=== PATIENT | female | born 1995 | race Caucasian/White ===

== ENCOUNTER → 2018-06-24 | Outpatient (REF) | payer BC ==
[2018-06-24 14:02] LABS: AMORPHOUS SEDIMENT SMALL (NEGATIVE); APPEARANCE, URINE CLOUDY (CLEAR); BACTERIA, URINE AUTO 3+ (NEGATIVE); BILIRUBIN, URINE AUTO NEGATIVE (NEGATIVE); BLOOD, URINE BLOOD NEGATIVE (NEGATIVE); COLOR, URINE YELLOW (YELLOW); GLUCOSE, URINE (UA) AUTO NEGATIVE (NEGATIVE); KETONE, URINE AUTO NEGATIVE (NEGATIVE); LEUKOCYTE ESTERASE, URINE AUTO 1+ (NEGATIVE); MUCUS, URINE SMALL (NEGATIVE); NITRITE, URINE AUTO NEGATIVE (NEGATIVE); PROTEIN, URINE AUTO NEGATIVE (NEGATIVE); RBC, URINE AUTO 1 /HPF (0-3); SPECIFIC GRAVITY URINE AUTO 1.021 (1.002-1.035); SQUAMOUS EPITHELIAL CELL UR AU 8 /HPF (0-6); UROBILINOGEN, URINE AUTO 0.2 mg/dL (0.0-2.0); WBC, URINE AUTO 4 /HPF (0-3)
== END ==
LOC: M LAB REF 13:05
DX: N39.0 Urinary tract infection, site not specified (principal)

== ENCOUNTER → 2020-06-30 | Outpatient (REF) | payer BC ==
[2020-07-27 11:19] LABS: CHLAMYDIA DNA AMPLIFICATION NEGATIVE (NEGATIVE); GC DNA AMPLIFICATION NEGATIVE (NEGATIVE)
[2020-07-29 02:28] LABS: HEMATOCRIT 39.7 % (36.0-47.0); HEMOGLOBIN 12.6 g/dl (12.0-15.5); MEAN CORPUSCULAR HEMOGLOBIN 27.7 pg (27.0-33.0); MEAN CORPUSCULAR HGB CONC 31.7 g/dl (32.0-36.5); MEAN CORPUSCULAR VOLUME 87.3 fl (80.0-96.0); PLATELET COUNT, AUTOMATED 235 10^3/uL (150-450); RED BLOOD COUNT 4.55 10^6/uL (4.00-5.40); WHITE BLOOD COUNT 8.3 10^3/uL (4.0-10.0)
[2020-08-17 12:58] LABS: GLUCOSE CHALLENGE TEST 1 HOUR 123 MG/DL (LESS THAN 140); HEPATITIS C VIRUS ABY INDEX 0.2 INDEX (<0.8); HIV 1&2 SCREEN CENTAUR NEGATIVE (NEGATIVE)
== END ==
LOC: M SFHCWAGY 15:32
PROVIDERS: ATTEND Advanced Practice Midwife
DX: O99.211 Obesity complicating pregnancy, first trimester (principal); Z3A.00 Weeks of gestation of pregnancy not specified

== ENCOUNTER → 2020-08-11 | Outpatient (CLI) | payer BC ==
--- NOTE | 2020-08-29 15:24 | REP ---
COMPLETE OBSTETRIC ULTRASOUND CLINICAL: Anatomical assessment. TECHNIQUE: Transabdominal obstetrical ultrasound with color Doppler evaluation. FINDINGS: Ultrasound examination demonstrates a single live intrauterine in variable presentation. Placenta noted anteriorly and grade 1 without evidence for placenta previa or abruption. Amniotic fluid volume is normal. Cervix measures 3.4 cm in length and appears closed. No evidence for nuchal cord. Gestational age by current measurements 18 weeks 1 day with estimated date of delivery 01/11/2021. heart rate 152 beats per minute. MEASUREMENTS: BPD 4.1 cm 18 weeks 4 days HC 15.1 cm 18 weeks 1 day AC 12.1 cm 17 weeks 5 days FL 2.7 cm 18 weeks 1 day HL 2.5 cm 17 weeks 6 days HC/AC ratio 1.25 Estimated weight 218 g (52nd percentile). Anatomical assessment demonstrates normal cranium, choroid plexus, cerebellum/posterior fossa, facial profile, four chamber heart, diaphragm, stomach, kidneys/bladder, spine, three-vessel cord/cord insertion, and extremities. Limited evaluation of the nose and lips and cardiac ventricular outflow tracts noted. IMPRESSION: Single live intrauterine in variable presentation demonstrating appropriate estimated weight. Limited evaluation of the nose/lips and cardiac ventricular outflow tracts may warrant reevaluation and follow-up. Remainder of the anatomical assessment is complete and normal. MTDD
== END ==
LOC: M WHC 09:03
PROVIDERS: ATTEND Advanced Practice Midwife
DX: Z34.82 Encounter for supervision of other normal pregnancy, second trimester (principal); Z3A.18 18 weeks gestation of pregnancy

== ENCOUNTER → 2020-09-15 | Outpatient (CLI) | payer BC ==
--- NOTE | 2020-09-15 08:12 | REP ---
INDICATION: F/U ANATOMY COMPARISON: 08/11/2020 TECHNIQUE: Transabdominal obstetrical ultrasound with color Doppler evaluation. FINDINGS: Examination demonstrates a single live intrauterine in transverse with head to maternal right presentation. motion is identified by technologist. Placenta is noted anterior and grade 1 without evidence for placenta previa or abruption. Amniotic fluid volume is normal. Cervix measures 3.2 cm in length and appears closed. No evidence for nuchal cord. Gestational age by LMP 22 weeks 6 days with AMY 01/13/2021. Gestational age by current measurements 22 weeks 6 days with AMY 01/13/2021. FHR equals 149 beats per minute. Estimated weight 532 grams (36thpercentile). Anatomical assessment demonstrates normal structures including cranium, facial features, lungs, cardiac ventricular outflow tracts, diaphragm, stomach, cord insertion/three-vessel cord, kidneys/bladder and spine. IMPRESSION: Single live intrauterine in transverse lie demonstrating appropriate interval growth and estimated weight. In conjunction with prior examination and Dom go assessment is complete and normal. <Electronically signed by Cheo Sandoval > 09/15/20 0833
== END ==
LOC: M WHC 06:41
PROVIDERS: ATTEND Advanced Practice Midwife
DX: O99.212 Obesity complicating pregnancy, second trimester (principal); O32.2XX0 Maternal care for transverse and oblique lie, not applicable or unspecified; Z3A.22 22 weeks gestation of pregnancy

== ENCOUNTER → 2020-10-21 | Outpatient (CLI) | payer BC | LOC: M LABSMTC 11:02 | PROVIDERS: ATTEND Pediatrics | DX: Z20.828 Contact with and (suspected) exposure to other viral communicable diseases (principal) ==

== ENCOUNTER → 2020-11-13 | Outpatient (REF) | payer BC ==
[2020-11-13 14:59] LABS: HEMATOCRIT 32.3 % (36.0-47.0); HEMOGLOBIN 10.3 g/dl (12.0-15.5); MEAN CORPUSCULAR HEMOGLOBIN 29.2 pg (27.0-33.0); MEAN CORPUSCULAR HGB CONC 31.9 g/dl (32.0-36.5); MEAN CORPUSCULAR VOLUME 91.5 fl (80.0-96.0); PLATELET COUNT, AUTOMATED 193 10^3/uL (150-450); RED BLOOD COUNT 3.53 10^6/uL (4.00-5.40); WHITE BLOOD COUNT 9.9 10^3/uL (4.0-10.0)
== END ==
LOC: M PLALAB 09:04
PROVIDERS: ATTEND Advanced Practice Midwife
DX: Z3A.26 26 weeks gestation of pregnancy (principal)

== ENCOUNTER → 2020-11-20 | Outpatient (CLI) | payer BC | LOC: M LAB 07:04 | PROVIDERS: ATTEND Advanced Practice Midwife | DX: Z34.93 Encounter for supervision of normal pregnancy, unspecified, third trimester (principal); Z3A.00 Weeks of gestation of pregnancy not specified ==

== ENCOUNTER → 2020-12-08 | Outpatient (REF) | payer BC ==
[2020-12-08 15:43] LABS: HEMATOCRIT 33.5 % (36.0-47.0); HEMOGLOBIN 10.6 g/dl (12.0-15.5); MEAN CORPUSCULAR HGB CONC 31.6 g/dl (32.0-36.5); MEAN CORPUSCULAR VOLUME 91.5 fl (80.0-96.0); PLATELET COUNT, AUTOMATED 186 10^3/uL (150-450); RED BLOOD COUNT 3.66 10^6/uL (4.00-5.40); WHITE BLOOD COUNT 9.4 10^3/uL (4.0-10.0)
[2020-12-08 16:07] LABS: HEMOGLOBIN A1c 5.5 %
[2020-12-08 16:23] LABS: CREATININE,RANDOM URINE 16.4 MG/DL; TOTAL PROTEIN,RANDOM URINE < 5.0 MG/DL (0.0-12.0)
[2020-12-08 16:24] LABS: ALT/SGPT 8 U/L (12-78); BILIRUBIN,TOTAL 0.3 MG/DL (0.2-1.0); CREATININE FOR GFR 0.58 MG/DL (0.55-1.30); GLOMERULAR FILTRATION RATE > 60.0 (>60); LDH LACTATE DEHYDROGENASE 120 U/L (84-246); URIC ACID 3.1 MG/DL (2.6-6.0)
== END ==
LOC: M PLALAB 11:34
PROVIDERS: ATTEND Advanced Practice Midwife
DX: R11.0 Nausea (principal)

== ENCOUNTER → 2020-12-19 | Outpatient (REF) | payer BC | LOC: M PLALAB 15:49 | PROVIDERS: ATTEND Obstetrics & Gynecology | DX: Z3A.36 36 weeks gestation of pregnancy (principal) ==

== ENCOUNTER → 2020-12-21 | Outpatient (REF) | payer BC ==
[~2020-12-21] MED LIST: FERR325T3 PO; PRENTAB9 PO
== END ==
LOC: M SFHCWAGY 16:56
PROVIDERS: ATTEND Obstetrics & Gynecology
DX: O99.820 Streptococcus B carrier state complicating pregnancy (principal); Z3A.36 36 weeks gestation of pregnancy

== ENCOUNTER 2021-01-13 12:45 | Inpatient (IN) | payer BC ==
[~2021-01-13] VITALS: Ht 167.6 cm; Wt 97.0 kg
[2021-01-13] VITALS (24 sets, daily range): BP systolic 99–144; BP diastolic 55–81
--- OUTSIDE RECORDS SUMMARY | 2021-01-13 12:49 | CCD ---
Author Author [facility] Organization [facility] Address Unknown Phone Unavailable Care Team Providers Care Gas Desulfurizer Name Role Phone Adelia Clayton Unavailable PROBLEMS Type Condition ICD9-CM Code PDF12-EX Code Onset Dates Condition S tatus SNOMED Code Notes Problem Obesity complicating in second trimester O99.212 Active 281119013422 Problem Obesity complicating , third trimester O9 9.213 Active 305337969652 Problem Other obesity due to excess calories E66.09 Act chris 476273711 Problem Supervision of other normal Z34.80 Ac tive 435054472 Problem Body mass index (BMI) 33.0-33.9, adult Z68.33 A ctive 640616051 Problem Obesity complicating in first trimester O99.211 Active 642125703660 ALLERGIES Allergen (clinical drug ingredient) Drug/Non Drug Allergy do cumented on EMR Reaction Allergy Type Onset Date Status penicillin Rash Non Drug Allergy 06/09/2020 Active ENCOUNTERS from 1997 to 2020-12-09 Encounter Location Date Provider Diagnosis [facility] [address] [place] [address] 08 Dec, 2020 Adelia Dailyevon Nausea R11.0 and Headache R51 IMMUNIZATIONS Vaccine Route Administration Date Status TDAP (VFC) 0.5mL (Boostrix) IM Intramuscular Nov 27, 2020 Adm inistered SOCIAL HISTORY Tobacco Use: Social History Observation Description Date Details (start date - stop date) Never Smoker Sex Assigned At : Social History Observation Description Sex Assigned At Unknown Alcohol Screening: Question Answer Notes Did you have a drink containing alcohol in the past year? No Points 0 Interpretation Negative Tobacco Use: Question Answer Notes Are you a: never smoker REASON FOR REFERRAL No Information VITAL SIGNS No information MEDICATIONS Medication SIG (Take, Route, Frequency, Duration) Notes Start Da te End Date Status Iron 325 (65 Fe) MG 1 tablet Orally Once a day Active 28-0.8 MG 1 tablet Orally Once a day Active Zofran 4 MG 1 tablet Orally every 8 hours as needed for nausea Not-Taking PROCEDURES No Information RESULTS Component Value Reference Range CBC - Complete Blood Count Reviewed date:12/08/2020 18:00:39 Interpretation: Performing Lab:[facility] LABORATORY [address] [id number] , ,[place] [address] WHITE BLOOD COUNT 9.4 4.0-10.0 RED BLOOD COUNT 3.66 4.00-5.40 HEMOGLOBIN 10.6 12.0-15.5 HEMATOCRIT 33.5 36.0-47.0 MEAN CORPUSCULAR VOLUME 91.5 80.0-96.0 MEAN CORPUSCULAR HEMOGLOBIN 29.0 27.0-33.0 MEAN CORPUSCULAR HGB CONC 31.6 32.0-36.5 RED CELL DISTRIBUTION WIDTH 14.6 11.5-14.5 PLATELET COUNT, AUTOMATED 186 150-450 HEMOGLOBIN A1c Reviewed date:12/08/2020 17:52:17 Interpretation: Performing Lab:[facility] LABORATORY [address] [address] , ,[facility] HEMOGLOBIN A1c 5.5 ESTIMATED AVERAGE GLUCOSE 111 60-110 Pre Eclampsia Profile Reviewed date:12/08/2020 17:55:16 Interpretation: Performing Lab:[facility] LABORATORY [address] [address] , ,[facility] CREATININE FOR GFR 0.58 0.55-1.30 GLOMERULAR FILTRATION RATE > 60.0 >60 AST/SGOT 6 7-37 ALT/SGPT 8 12-78 LDH LACTATE DEHYDROGENASE 120 84-246 BILIRUBIN,TOTAL 0.3 0.2-1.0 URIC ACID 3.1 2.6-6.0 CREATININE,RANDOM URINE Reviewed date:12/08/2020 17:53:08 Interpretation: Performing Lab:[facility] LABORATORY [address] [id number] , ,[place] [address] CREATININE,RANDOM URINE 16.4 TOTAL PROTEIN,RANDOM URINE Reviewed date:12/08/2020 17:54:59 Interpretation: Performing Lab:[facility] LAB[facility]ORY [id number] , ,[place] [address] TOTAL PROTEIN,RANDOM URINE < 5.0 0.0-12.0 REASON FOR VISIT symptoms MEDICAL (GENERAL) HISTORY Type Description Date Surgical History No know Surgical history Goals Section No Information Health Concerns No Information MEDICAL EQUIPMENT No Information MENTAL STATUS No Information FUNCTIONAL STATUS No Information ASSESSMENTS Encounter Date Diagnosis Assessment Notes Treatment Notes Treatm ent Clinical Notes Dec, Nausea (ICD-10 - R11.0) Dec, Headache (ICD-10 - R51) PLAN OF TREATMENT Next Appt Details Provider Name:Sonia Saenz, 2020-12 03:40:00 PM, [address] [place], [address], Insurance Providers Payer Name Payer Address Payer Phone Insured Name Patient Relati onship to Insured Coverage Start Date Coverage End Date KESHA [place] [facility] [address] [place] [address] Terry Fitch
--- OUTSIDE RECORDS SUMMARY | 2021-01-13 12:49 | CCD ---
Author Author [facility] Organization [facility] Address Unknown Phone Unavailable Care Team Providers Care Pumping Station Supervisor Name Role Phone Kobi Serrano Unavailable PROBLEMS Type Condition ICD9-CM Code BNL24-XP Code Onset Dates Condition S tatus SNOMED Code Notes Problem Obesity complicating in second trimester O99.212 Active 406924846220 Problem Obesity complicating , third trimester O9 9.213 Active 306887830964 Problem Other obesity due to excess calories E66.09 Act crhis 446592326 Problem Supervision of other normal Z34.80 Ac tive 935868296 Problem Body mass index (BMI) 33.0-33.9, adult Z68.33 A ctive 626932249 Problem Obesity complicating in first trimester O99.211 Active 674363276047 ALLERGIES Allergen (clinical drug ingredient) Drug/Non Drug Allergy do cumented on EMR Reaction Allergy Type Onset Date Status penicillin Rash Non Drug Allergy 06/09/2020 Active ENCOUNTERS from 1997 to 2020-12-06 Encounter Location Date Provider Diagnosis [facility] [place] [address] Oct, Kobi Serrano 33 weeks gestation o f Z3A.33 ; Obesity complicating , third trimester O99.213 and Encounter for immunization Z23 IMMUNIZATIONS Vaccine Route Administration Date Status TDAP [...] REASON FOR REFERRAL No Information VITAL SIGNS Weight 205 lbs Oct, Height 66 in Oct, BMI 33.088 kg/m2 Oct, Blood pressure systolic 118 mm Hg Oct, Blood pressure diastolic 78 mm Hg Oct, MEDICATIONS Medication SIG (Take, Route, Frequency, Duration) Notes Start Da te End Date Status Iron 325 (65 Fe) MG 1 tablet Orally Once a day Active 28-0.8 MG 1 tablet Orally Once a day Active Zofran 4 MG 1 tablet Orally every 8 hours as needed for nausea Not-Taking PROCEDURES from 1997 to 2020-12-06 Procedure Date Ordered Result Body Site Immunization: Boostrix 0.5mL IM (TDAP) 2020-11-27 N/A RESULTS No Results REASON FOR VISIT 2WK PN MEDICAL (GENERAL) HISTORY Type Description Date Surgical History No know Surgical history Goals Section No Information Health Concerns No Information MEDICAL EQUIPMENT No Information MENTAL STATUS No Information FUNCTIONAL STATUS No Information ASSESSMENTS Encounter Date Diagnosis Assessment Notes Treatment Notes Treatm ent Clinical Notes Oct, 33 weeks gestation of (ICD-10 - Z3A.33 ) Oct, Obesity complicating , third tr imester (ICD-10 - O99.213) Oct, Encounter for immunization (ICD-10 - Z23) PLAN OF TREATMENT Next Appt Details 2 Weeks Reason:follow-up Provider Name:Sonia Saenz, 2020-12 03:40:00 PM, [address] [place], [address], Follow Up:2 Weeksfollow-up Insurance Providers Payer Name Payer Address Payer Phone Insured Name Patient Relati onship to Insured Coverage Start Date Coverage End Date [place] [employer] [address] [place] [address] Terry Fitch
--- OUTSIDE RECORDS SUMMARY | 2021-01-13 12:49 | CCD ---
Author Author [facility] Organization [facility] Address Unknown Phone Unavailable Care Team Providers Care Psychology Teacher Name Role Phone Sonia Saenz Unavailable PROBLEMS Type Condition ICD9-CM Code TWL80-AA Code Onset Dates Condition S tatus W/U Status Risk SNOMED Code Notes Problem Other obesity due to excess calories E66.09 Act chris confirmed 893337709 Problem Obesity complicating , third trimester O9 9.213 Active confirmed 235531665524 Problem Obesity E66.9 Active confirmed 670278193 Problem Supervision of other normal Z34.80 Ac tive confirm 006379537 Problem Body mass index (BMI) 33.0-33.9, adult Z68.33 A ctive confirmed 418900127 Problem Obesity complicating in first trimester O99.211 Active confirmed 815539523077 Problem Obesity complicating in second trimester O99.212 Active confirmed 639146901726 ALLERGIES Allergen (clinical drug ingredient) Drug/Non Drug Allergy do cumented on EMR Reaction Allergy Type Onset Date Status penicillin Rash Non Drug Allergy 06/09/2020 Active ENCOUNTERS from 1997 to 2021-01-05 Encounter Location Date Provider Diagnosis [facility] [place] [address] Dec, Sonia Saenz 37 weeks gestation o f Z3A.37 ; Obesity complicating , third trimester O99.213 ; Other obesity due to excess calories E66.09 and Group B streptococcal carriage complicating O99.820 IMMUNIZATIONS Vaccine Route Administration Date Status TDAP [...] FOR REFERRAL No Information VITAL SIGNS Weight 213 lbs Dec, Height 66 in Dec, BMI 34.379 kg/m2 Dec, Blood pressure systolic 124 mm Hg Dec, Blood pressure diastolic 82 mm Hg Dec, MEDICATIONS Medication SIG (Take, Route, Frequency, Duration) Notes Start Da te End Date Status Iron 325 (65 Fe) MG 1 tablet Orally Once a day Active 28-0.8 MG 1 tablet Orally Once a day Active Zofran 4 MG 1 tablet Orally every 8 hours as needed for nausea Not-Taking PROCEDURES No Information RESULTS No Results REASON FOR VISIT 1WK PN MEDICAL (GENERAL) HISTORY Type Description Date Surgical History No Surgical history information Goals Section No Information Health Concerns No Information MEDICAL EQUIPMENT No Information MENTAL STATUS No Information FUNCTIONAL STATUS No Information ASSESSMENTS Encounter Date Diagnosis Assessment Notes Treatment Notes Treatm ent Clinical Notes Dec, 37 weeks gestation of (ICD-10 - Z3A.37 ) Dec, Obesity complicating , third tr imester (ICD-10 - O99.213) Dec, Other obesity due to excess calories (ICD-10 - E 66.09) Dec, Group B streptococcal carria ge complicating (ICD-10 - O99.820) PLAN OF TREATMENT Next Appt Details 1 Week Reason:PN Provider Name:Sonia Saenz, 2021-01 02:00:00 PM, [address] [place], [address], Follow Up:1 WeekPN Insurance Providers Payer Name Payer Address Payer Phone Insured Name Patient Relati onship to Insured Coverage Start Date Coverage End Date BS [place] [employer] [address] [place] [address] [phone] Terry Mederos
--- OUTSIDE RECORDS SUMMARY | 2021-01-13 12:49 | CCD ---
Author Author [facility] Organization [facility] Address Unknown Phone Unavailable Care Team Providers Care Wind Commissioning Technician Name Role Phone Sonia Saenz Unavailable PROBLEMS Type Condition ICD9-CM Code WJG32-CX Code Onset Dates Condition S tatus SNOMED Code Notes Problem Other obesity due to excess calories E66.09 Act chris 485641643 Problem Obesity complicating , third trimester O9 9.213 Active 656995578529 Problem Obesity E66.9 Active 515366661 Problem Supervision of other normal Z34.80 Ac tive 948650701 Problem Body mass index (BMI) 33.0-33.9, adult Z68.33 A ctive 461239510 Problem Obesity complicating in first trimester O99.211 Active 174788155682 Problem Obesity complicating in second trimester O99.212 Active 877624266306 ALLERGIES Allergen (clinical drug ingredient) Drug/Non Drug Allergy do cumented on EMR Reaction Allergy Type Onset Date Status penicillin Rash Non Drug Allergy 06/09/2020 Active ENCOUNTERS from 1997 to 2020-12-22 Encounter Location Date Provider Diagnosis [facility] [address] [place] [address] Dec, Sonia Saenz 35 weeks gestation o f Z3A.35 ; Obesity complicating , third trimester O99.213 ; Other obesity due to excess calories E66.09 and Anemia affecting in third trimester O99.013 IMMUNIZATIONS Vaccine Route Administration Date Status TDAP [...] FOR REFERRAL No Information VITAL SIGNS Weight 211 lbs Dec, Height 66 in Dec, BMI 34.056 kg/m2 Dec, Blood pressure systolic 124 mm Hg Dec, Blood pressure diastolic 84 mm Hg Dec, MEDICATIONS Medication SIG (Take, Route, Frequency, Duration) Notes Start Da te End Date Status 28-0.8 MG 1 tablet Orally Once a day Active Zofran 4 MG 1 tablet Orally every 8 hours as needed for nausea Not-Taking Iron 325 (65 Fe) MG 1 tablet Orally Once a day Active PROCEDURES No Information RESULTS No Results REASON FOR VISIT 2wk pn MEDICAL (GENERAL) HISTORY Type Description Date Surgical History No Surgical history information Goals Section No Information Health Concerns No Information MEDICAL EQUIPMENT No Information MENTAL STATUS No Information FUNCTIONAL STATUS No Information ASSESSMENTS Encounter Date Diagnosis Assessment Notes Treatment Notes Treatm ent Clinical Notes Dec, 35 weeks gestation of (ICD-10 - Z3A.35 ) Dec, Obesity complicating , third tr imester (ICD-10 - O99.213) Dec, Other obesity due to excess calories (ICD-10 - E 66.09) Dec, Anemia affecting in third trimester (I CD-10 - O99.013) PLAN OF TREATMENT Next Appt Details 1 Week Reason:PN Provider Name:Sonia Saenz, 2020-12 03:40:00 PM, [address] [place], [address], Follow Up:1 WeekPN Insurance Providers Payer Name Payer Address Payer Phone Insured Name Patient Relati onship to Insured Coverage Start Date Coverage End Date BS [place] [employer] [address] [place] [address] [phone] Terry Mederos
--- OUTSIDE RECORDS SUMMARY | 2021-01-13 12:49 | CCD ---
Author Author [facility] Organization [facility] Address Unknown Phone Unavailable Care Team Providers Care Optical Instruments Supervisor Name Role Phone Adelia Clayton Unavailable PROBLEMS Type Condition ICD9-CM Code KRF46-WH Code Onset Dates Condition S tatus SNOMED Code Notes Problem Obesity complicating in first trimester O99.211 Active 873503529012 Problem Obesity complicating in second trimester O99.212 Active 339926826382 Problem Active Problem Body mass index (BMI) 33.0-33.9, adult Z68.33 A ctive 330742185 Problem Other obesity due to excess calories E66.09 Act chris 240931635 Problem Supervision of other normal Z34.80 Ac tive 616538411 ALLERGIES Allergen (clinical drug ingredient) Drug/Non Drug Allergy do cumented on EMR Reaction Allergy Type Onset Date Status penicillin Rash Non Drug Allergy 06/09/2020 Active ENCOUNTERS from 1997 to 2020-10-24 Encounter Location Date Provider Diagnosis [facility] [address] [place] [address] Oct, Adelia Clayton 26 weeks gestatio n of Z3A.26 and Obesity complicating in second trimester O99.212 IMMUNIZATIONS No Information SOCIAL HISTORY Tobacco Use: Social History Observation [...] FOR REFERRAL No Information VITAL SIGNS Weight 199.4 lbs 11 Oct, 2020 Weight-kg 90.45 kg Oct, Height 66 in Oct, BMI 32.184 kg/m2 Oct, Blood pressure systolic 112 mm Hg Oct, Blood pressure diastolic 70 mm Hg Oct, MEDICATIONS Medication SIG (Take, Route, Frequency, Duration) Notes Start Da te End Date Status 28-0.8 MG 1 tablet Orally Once a day Active Zofran 4 MG 1 tablet Orally every 8 hours as needed for nausea Not-Taking PROCEDURES No Information RESULTS No Results REASON FOR VISIT 4 WEEK PN MEDICAL (GENERAL) HISTORY Type Description Date Surgical History No know Surgical history Goals Section No Information Health Concerns No Information MEDICAL EQUIPMENT No Information MENTAL STATUS No Information FUNCTIONAL STATUS No Information ASSESSMENTS Encounter Date Diagnosis Assessment Notes Treatment Notes Treatm ent Clinical Notes Oct, 26 weeks gestation of (ICD-10 - Z3A.26 ) PLAN OF TREATMENT Treatment Notes Test Name Order Date CBC - Complete Blood Count 2020-10-24 AB SCREEN (INDIRECT SHAKIRA)GEL Antibody Screen 2020-10 Type and Screen (D Rh Antibody Screen) 2020-10-24 Glucose Challenge Test 1 Hour 2020-10-24 Next Appt Details 4 Weeks Reason: Provider Name:Ana Laura Lucero Volodymyr, 2020-11-13 0 2:40:00 PM, [address] [place], [address], Follow Up:4 WeeksPrenatal Insurance Providers Payer Name Payer Address Payer Phone Insured Name Patient Relati onship to Insured Coverage Start Date Coverage End Date [place] [address] [address] [place] [address] Terry Fitch
--- OUTSIDE RECORDS SUMMARY | 2021-01-13 12:49 | CCD ---
Author Author [facility] Organization [facility] Address Unknown Phone Unavailable Care Team Providers Care Photographic Supervisor Name Role Phone Sonia Saenz Unavailable PROBLEMS Type Condition ICD9-CM Code CBI17-MN Code Onset Dates Condition S tatus W/U Status Risk SNOMED Code Notes Problem Other obesity due to excess calories E66.09 Act chris confirmed 008326999 Problem Obesity complicating , third trimester O9 9.213 Active confirmed 566923210206 Problem Obesity E66.9 Active confirmed 569314283 Problem Supervision of other normal Z34.80 Ac tive confirm 623495931 Problem Body mass index (BMI) 33.0-33.9, adult Z68.33 A ctive confirmed 480216960 Problem Obesity complicating in first trimester O99.211 Active confirmed 623606485196 Problem Obesity complicating in second trimester O99.212 Active confirmed 697676500865 ALLERGIES Allergen (clinical drug ingredient) Drug/Non Drug Allergy do cumented on EMR Reaction Allergy Type Onset Date Status penicillin Rash Non Drug Allergy 06/09/2020 Active ENCOUNTERS from 1997 to 2021-01-01 Encounter Location Date Provider Diagnosis [facility] [address] [place] [address] Dec, Sonia Saenz 36 weeks gestation o f Z3A.36 ; Obesity complicating , third trimester O99.213 ; Obesity E66.9 and Anemia complicating in third trimester O99.013 IMMUNIZATIONS Vaccine Route [...] FOR REFERRAL No Information VITAL SIGNS Weight 209 lbs Dec, Height 66 in Dec, BMI 33.733 kg/m2 Dec, Blood pressure systolic 118 mm Hg Dec, Blood pressure diastolic 82 [...] No Information RESULTS Component Value Reference Range GROUP B STREP CULTURE Reviewed date:12/25/2020 08:17:10 Interpretation: Performing Lab:[facility], [facility]OR[facility] [address] [facility] [id number] , ,[place] [address] REASON FOR VISIT 1WK PN MEDICAL (GENERAL) HISTORY Type Description Date Surgical History No Surgical history information Goals Section No Information Health Concerns No Information MEDICAL EQUIPMENT No Information MENTAL STATUS No Information FUNCTIONAL STATUS No Information ASSESSMENTS Encounter Date Diagnosis Assessment Notes Treatment Notes Treatm ent Clinical Notes Dec, 36 weeks gestation of (ICD-10 - Z3A.36 ) Dec, Obesity complicating , third tr imester (ICD-10 - O99.213) Dec, Obesity (ICD-10 - E66.9) Dec, Anemia complicating pregnanc y in third trimester (ICD-10 - O99.013) PLAN OF TREATMENT Next Appt Details 1 Week Reason:PN Provider Name:Sonia Saenz, 2021-01 02:00:00 PM, [address] [place], [address], Follow Up:1 WeekPN Insurance Providers Payer Name Payer Address Payer Phone Insured Name Patient Relati onship to Insured Coverage Start Date Coverage End Date [place] [address] [address] [place] [address] Terry Fitch
--- OUTSIDE RECORDS SUMMARY | 2021-01-13 12:49 | CCD ---
Author Author [facility] Organization [facility] Address Unknown Phone Unavailable Care Team Providers Care Sweeping Compound Blender Name Role Phone Adelia Clayton Unavailable PROBLEMS Type Condition ICD9-CM Code [id number] Code Onset Dates Condition S tatus SNOMED Code Notes Problem Obesity complicating in first trimester O99.211 Active 102303519524 Problem Obesity complicating in second trimester O99.212 Active 968242655684 Problem Body mass index (BMI) 33.0-33.9, adult Z68.33 A ctive 524302121 Problem Other obesity due to excess calories E66.09 Act chris 511999449 Problem Supervision of other normal Z34.80 Ac tive [id number] ALLERGIES Allergen (clinical drug ingredient) Drug/Non Drug Allergy do cumented on EMR Reaction Allergy Type Onset Date Status penicillin Rash Non Drug Allergy 06/09/2020 Active ENCOUNTERS from 1997 to 2020-11-15 Encounter Location Date Provider Diagnosis [facility] [address] [place] [id number] Oct, Adelia Clayton Third trimester p regnancy Z34.93 IMMUNIZATIONS No Information SOCIAL HISTORY Tobacco Use: [...] Notes Start Da te End Date Status Zofran 4 MG 1 tablet Orally every 8 hours as needed for nausea Not-Taking 28-0.8 MG 1 tablet Orally Once a day Active PROCEDURES No Information RESULTS No Results REASON FOR VISIT No Information MEDICAL (GENERAL) HISTORY Type Description Date Surgical History No know Surgical history Goals Section No Information Health Concerns No Information MEDICAL EQUIPMENT No Information MENTAL STATUS No Information FUNCTIONAL STATUS No Information ASSESSMENTS Encounter Date Diagnosis Assessment Notes Treatment Notes Treatm ent Clinical Notes Oct, Third trimester (ICD-10 - Z34.93) PLAN OF TREATMENT Treatment Notes Test Name Order Date GLUCOSE JAROCHO 3 HR GESTATIONAL 2020-11-15 Next Appt Details Provider Name:Kobi Theron Serrano, 01:40:00 PM, [address] [place], [address], Insurance Providers Payer Name Payer Address Payer Phone Insured Name Patient Relati onship to Insured Coverage Start Date Coverage End Date BS [place] [facility] [address] [place] [address] [phone] Terry Fitch
--- OUTSIDE RECORDS SUMMARY | 2021-01-13 12:49 | CCD ---
Author Author [facility] Organization [facility] Address Unknown Phone Unavailable Care Team Providers Care Psychic Reader Name Role Phone Ana Laura Helm Unavailable PROBLEMS Type Condition ICD9-CM Code [id number]-ZS Code Onset Dates Condition S tatus SNOMED Code Notes Problem Obesity complicating in first trimester O99.211 Active 673686398821 Problem Obesity complicating in second trimester O99.212 Active 254956211890 Problem Body mass index (BMI) 33.0-33.9, adult Z68.33 A ctive 562316573 Problem Other obesity due to excess calories E66.09 Act chris 238073512 Problem Supervision of other normal Z34.80 Ac tive [id number] ALLERGIES Allergen (clinical drug ingredient) Drug/Non Drug Allergy do cumented on EMR Reaction Allergy Type Onset Date Status penicillin Rash Non Drug Allergy 06/09/2020 Active ENCOUNTERS from 1997 to 2020-11-14 Encounter Location Date Provider Diagnosis [facility] [address] [place] [address] Oct, Ana Laura Helm Obesity complicating , third trimester O99.213 and 31 weeks gestation of Z3A.31 IMMUNIZATIONS No Information SOCIAL HISTORY Tobacco Use: [...] FOR REFERRAL No Information VITAL SIGNS Weight 204.6 lbs Oct, Weight-kg 92.8 kg Oct, Height 66 in Oct, BMI 33.023 kg/m2 Oct, Blood pressure systolic 120 mm Hg Oct, Blood pressure diastolic 70 mm Hg Oct, MEDICATIONS Medication SIG (Take, Route, Frequency, Duration) Notes Start Da te End Date Status Zofran 4 MG 1 tablet Orally every 8 hours as needed for nausea Not-Taking 28-0.8 MG 1 tablet Orally Once a day Active PROCEDURES No Information RESULTS No Results REASON FOR VISIT 4WK PN MEDICAL (GENERAL) HISTORY Type Description Date Surgical History No know Surgical history Goals Section No Information Health Concerns No Information MEDICAL EQUIPMENT No Information MENTAL STATUS No Information FUNCTIONAL STATUS No Information ASSESSMENTS Encounter Date Diagnosis Assessment Notes Treatment Notes Treatm ent Clinical Notes Oct, Obesity complicating , third tr imester (ICD-10 - O99.213) Oct, 31 weeks gestation of (ICD-10 - Z3A.31 ) PLAN OF TREATMENT Next Appt Details 2 Weeks Reason: Provider Name:Kobi Serrano 01:40:00 PM, [address] [place], [address], Insurance Providers Payer Name Payer Address Payer Phone Insured Name Patient Relati onship to Insured Coverage Start Date Coverage End Date BS [place] [id number] [address] [place] [phone] Terry Fitch
--- OUTSIDE RECORDS SUMMARY | 2021-01-13 12:50 | CCD ---
Author Author [facility] Organization [facility] Address Unknown Phone Unavailable Support Name Relationship Address Phone FRIEDA BENOIT Next Of Kin [address] [place] [address] TEO GRIJALVA Next Of Kin [address] [place] [address] ST Next Of Kin Unknown Unavailable CHANDNI FITCH Next Of Kin [address] [place] [address] Jazmine FITCH Next Of Kin [address] [facility] [address] [place] [address] TEO GRIJALVA [address] [place] [address] [phone] Re-disclosure Warning The records that you are about to access may contain information from federally-assisted alcohol or drug abuse programs. If such information is present, then the following federally mandated warning applies: This information has been disclosed to you from records protected by federal confidentiality rules (42 CFR part 2). The federal rules prohibit you from making any further disclosure of this information unless further disclosure is expressly permitted by the written consent of the person to whom it pertains or as otherwise permitted by 42 CFR part 2. A general authorization for the release of medical or other information is NOT sufficient for this purpose. The Federal rules restrict any use of the information to criminally investigate or prosecute any alcohol or drug abuse patient.The records that you are about to access may contain highly sensitive health information, the redisclosure of which is protected by Article 27-F of the [facility] Public Health law. If you continue you may have access to information: Regarding HIV / AIDS; Provided by facilities licensed or operated by the [facility] Office of Mental Health; or Provided by the [facility] Office for People With Developmental Disabilities. If such information is present, then the following [facility] mandated warning applies: This information has been disclosed to you from confidential records which are protected by state law. State law prohibits you from making any further disclosure of this information without the specific written consent of the person to whom it pertains, or as otherwise permitted by law. Any unauthorized further disclosure in violation of state law may result in a fine or fdc sentence or both. A general authorization for the release of medical or other information is NOT sufficient authorization for further disc losure. Allergies and Adverse Reactions Type Description Substance Reaction Status Data Source(s ) Propensity to adverse reactions penicillin Propensity to ad verse reactions Rash Active [facility] Propensity to adverse reactions penicillin Propensity to ad verse reactions Rash Active [facility]CW[facility] [place] Propensity to adverse reactions penicillin Propensity to ad verse reactions Rash Active [facility]CW1 [facility] [place] Propensity to adverse reactions penicillin Propensity to ad verse reactions Rash Active [facility]CW1 [facility]) Propensity to adverse reactions penicillin Propensity to ad verse reactions Rash Active [facility]CW1 [facility]) Propensity to adverse reactions penicillin Propensity to ad verse reactions Rash Active [facility]CW1 [facility]) Propensity to adverse reactions penicillin Propensity to ad verse reactions Rash Active [facility]CW1 [facility]) Propensity to adverse reactions penicillin Propensity to ad verse reactions Rash Active [facility]CW1 [facility]) Propensity to adverse reactions penicillin Propensity to ad verse reactions Rash Active [facility]CW1 [facility]) Propensity to adverse reactions penicillin Propensity to ad verse reactions Rash Active eCW1 [facility] [place]) Encounters Encounter Providers Location Date Indications Data Source(s ) ( ESTOB) [facility] Est OB [address] [place] [address] 12/27/2020 12:00:00 AM EST eCW1 ([facility]) ( ESTOB) [facility] Est [facility] [address] [place] [address] 12/21/2020 12:00:00 AM EST eCW1 ([facility]) ( ESTOB) [facility] Est OB [address] [place] [address] 12/12/2020 12:00:00 AM EST eCW1 ([facility]) [place] [address] [facility] [address] 12/08/2020 12:00:00 AM EST eCW1 ([facility]) (WC ESTOB) [facility] [address] [place] [address] 11/27/2020 12:00:00 AM EST eCW1 ([facility]) [place] [address] [facility] [address] 11/14/2020 12:00:00 AM EST eCW1 ([facility]) (WC ESTOB) [facility] [address] [place] [address] 11/13/2020 12:00:00 AM EST eCW1 ([facility]) (WC ESTOB) [facility] [address] [place] [address] 10/11/2020 12:00:00 AM EST eCW1 ([facility]) (WC ESTOB) [facility] [address] [place] [address] 09/08/2020 12:00:00 AM EDT eCW1 ([facility]) (WC ESTOB) [facility] [address] [place] [address] 06/09/2020 12:00:00 AM EDT eCW1 ([facility]) [facility] [address] [place] [address] 03/01/2020 12:00:00 AM EDT eCW1 ([facility]) Immunizations Vaccine Date Status Description Data Source(s) Tdap 11/27/2020 02:23:00 PM EST completed e CW1 ([facility]) Tdap 11/27/2020 02:23:00 PM EST completed e CW1 ([facility]) Tdap 11/27/2020 02:23:00 PM EST completed e CW1 ([facility]) Tdap 11/27/2020 02:23:00 PM EST completed e CW1 ([facility]) Tdap 11/27/2020 02:23:00 PM EST completed e CW1 ([facility]) Medications Medication Brand Name Start Date Product Form Dose Route Admi nistrative Instructions Pharmacy Instructions Status Indications Reaction Description Data Source(s) 4 mg 06/09/2020 12:00:00 AM EDT tablet 36 TAKE ONE TABLET BY MOUTH EVERY 8 HOURS NEEDED FOR NAUSEA TAKE ONE TABLET BY MOUTH EVERY 8 HOURS A S NEEDED FOR NAUSEA SOLD: 06/09/2020 [facility] Insurance Providers Payer name Policy type / Coverage type Policy ID Covered libertarian ID Covered libertarian's relationship to poe Policy Poe Plan Information [employer] [id number] [id number] [facility] B [id number] D [id number] Problems, Conditions, and Diagnoses Code Display Name Description Problem Type Effective Dates Data Source(s) E66.9 Obesity Obesity Problem 12/21/2020 12:00:00 AM ES T eCW1 ([facility]) O99.213 Maternal obesity complicatin g , childbirth and the puerperium, antepartum Obesity complicating , third trimester Problem 11/30/2020 12:00:00 AM EST eCW1 ([facility]) O99.212 [id number] Obesity complicating in second trimester Problem 09/07/2020 12:00:00 AM EDT eCW1 ([facility]) O99.211 [id number] Obesity complicating in first t rimester Problem 06/09/2020 12:00:00 AM EDT eCW1 ([facility]) Z68.33 [id number] Body mass index (BMI) 33.0-33.9, adult Pr oblem 06/09/2020 12:00:00 AM EDT eCW1 ([facility]) E66.09 [id number] Other obesity due to excess calories Prob manuel 06/09/2020 12:00:00 AM EDT eCW1 ([facility]) Z34.80 care Supervision of other normal P roblem 05/29/2020 12:00:00 AM EDT eCW1 ([facility]) Z34.80 care Supervision of other normal P roblem 02/29/2020 12:00:00 AM EDT eCW1 ([facility]) Surgeries/Procedures Procedure Description Date Indications Data Source(s) Immunization: Boostrix 0.5mL IM (TDAP) 11/27/2020 12:0 0:00 AM EST eCW1 ([facility]) US PREG UTERUS REAL TIME W/IMAGE DCMTN TRANSVAG 2019 12:00:00 AM EDT eCW1 ([facility]) Results ID Date Data Source [id number] 12/26/2020 02:00:00 PM EST [facility] Name Value Range Interpretation Code Description Data Bela rce(s) Supporting Document(s) SARS coronavirus 2 RNA Not Detected [facility] [place] This lab was ordered by [facility] and reported by [facility]. ID Date Data Source GROUP B STREP CULTURE 12/21/2020 12:00:00 AM EST eCW1 ([facility]) Name Value Range Interpretation Code Description Data Bela rce(s) Supporting Document(s) GROUP B STREP CULTURE eCW1 ([facility]) ID Date Data Source [id number] 12/19/2020 01:24:00 PM EST [facility] Name Value Range Interpretation Code Description Data Bela rce(s) Supporting Document(s) SARS coronavirus 2 RNA Not Detected [facility] [place] This lab was ordered by [facility] and reported by [facility]. ID Date Data Source [id number] 12/12/2020 05:30:00 AM EST [facility] Name Value Range Interpretation Code Description Data Bela rce(s) Supporting Document(s) SARS coronavirus 2 RNA Not Detected [facility] [place] This lab was ordered by [facility] and reported by [facility]. ID Date Data Source TOTAL PROTEIN,RANDOM URINE 12/08/2020 12:00:00 AM EST eCW1 ( [facility]) Name Value Range Interpretation Code Description Data Bela rce(s) Supporting Document(s) < 5.0 0.0-12.0 TOTAL PROTEIN,RANDOM URIN E eCW1 ([facility]) ID Date Data Source CREATININE,RANDOM URINE 12/08/2020 12:00:00 AM EST eCW1 ([facility]) Name Value Range Interpretation Code Description Data Bela rce(s) Supporting Document(s) 16.4 CREATININE,RANDOM URINE eCW1 ( [facility]) ID Date Data Source Pre Eclampsia Profile 12/08/2020 12:00:00 AM EST eCW1 ([facility]) Name Value Range Interpretation Code Description Data Bela rce(s) Supporting Document(s) > 60.0 >60 GLOMERULAR FILTRATION RATE eCW 1 ([facility]) 0.58 0.55-1.30 CREATININE FOR GFR eCW1 ([facility]) 6 7-37 AST/SGOT eCW1 ([facility]) 3.1 2.6-6.0 URIC ACID eCW1 ([facility]) 8 12-78 ALT/SGPT eCW1 ([facility]) 0.3 0.2-1.0 BILIRUBIN,TOTAL eCW1 ([facility]) 120 84-246 LDH LACTATE DEHYDROGENASE eCW1 ([facility]) ID Date Data Source [id number] 12/08/2020 12:00:00 AM EST eCW1 ([facility]) Name Value Range Interpretation Code Description Data Bela rce(s) Supporting Document(s) Hemoglobin A1c/Hemoglobin.total in Blood 5.5 HEMOGLOBIN A1c eCW1 ([facility]) ID Date Data Source CBC - Complete Blood Count 12/08/2020 12:00:00 AM EST eCW1 ( [facility]) Name Value Range Interpretation Code Description Data Bela rce(s) Supporting Document(s) 9.4 4.0-10.0 WHITE BLOOD COUNT eCW1 ([facility]) 3.66 4.00-5.40 RED BLOOD COUNT eCW1 ([facility]) 33.5 36.0-47.0 HEMATOCRIT eCW1 ([facility] of [facility]) 10.6 12.0-15.5 HEMOGLOBIN eCW1 ([facility] of [facility]) 91.5 80.0-96.0 MEAN CORPUSCULAR VOLUME e CW1 ([facility]) 31.6 32.0-36.5 MEAN CORPUSCULAR HGB CONC eCW1 ([facility]) 29.0 27.0-33.0 MEAN CORPUSCULAR HEMOGLOB IN eCW1 ([facility]) 14.6 11.5-14.5 RED CELL DISTRIBUTION WID TH eCW1 ([facility]) 186 150-450 PLATELET COUNT, AUTOMATED eCW1 ([facility]) ID Date Data Source [id number] 12/05/2020 06:30:00 AM EST [facility] Name Value Range Interpretation Code Description Data Bela rce(s) Supporting Document(s) SARS coronavirus 2 RNA Not Detected [facility] [place] This lab was ordered by [facility] and reported by [facility]. ID Date Data Source [id number] 11/28/2020 05:47:00 AM EST [facility] Name Value Range Interpretation Code Description Data Bela rce(s) Supporting Document(s) SARS coronavirus 2 RNA [facility] This lab was ordered by [facility] and reported by [facility]. ID Date Data Source [id number] 11/21/2020 09:00:00 AM EST [facility] Name Value Range Interpretation Code Description Data Bela rce(s) Supporting Document(s) SARS coronavirus 2 RNA [facility] This lab was ordered by [facility] and reported by [facility]. ID Date Data Source [id number] 11/14/2020 09:15:00 AM EST [facility] Name Value Range Interpretation Code Description Data Bela rce(s) Supporting Document(s) SARS coronavirus 2 RNA [facility] This lab was ordered by [facility] and reported by [facility]. ID Date Data Source [id number] 11/07/2020 10:00:00 AM EST [facility] Name Value Range Interpretation Code Description Data Bela rce(s) Supporting Document(s) SARS coronavirus 2 RNA [facility] This lab was ordered by [facility] and reported by [facility]. ID Date Data Source [id number] 10/31/2020 06:22:00 AM EST [facility] Name Value Range Interpretation Code Description Data Bela rce(s) Supporting Document(s) SARS coronavirus 2 RNA [facility] This lab was ordered by [facility] and reported by [facility]. ID Date Data Source [id number] 10/24/2020 03:00:00 PM EST [facility] Name Value Range Interpretation Code Description Data Bela rce(s) Supporting Document(s) SARS coronavirus 2 RNA [facility] This lab was ordered by [facility] and reported by [facility]. ID Date Data Source [id number] 10/21/2020 11:00:00 AM EST [facility] Name Value Range Interpretation Code Description Data Bela rce(s) Supporting Document(s) SARS coronavirus 2 RNA [facility] This lab was ordered by [facility] and reported by [facility]. ID Date Data Source [id number] 10/10/2020 12:00:00 PM EST [facility] Name Value Range Interpretation Code Description Data Bela rce(s) Supporting Document(s) SARS coronavirus 2 RNA [facility] This lab was ordered by [facility] and reported by [facility]. ID Date Data Source [id number] 10/03/2020 09:20:00 AM EST [facility] Name Value Range Interpretation Code Description Data Bela rce(s) Supporting Document(s) SARS coronavirus 2 RNA [facility] This lab was ordered by [facility] and reported by [facility]. ID Date Data Source [id number] 09/26/2020 02:00:00 PM EDT [facility] Name Value Range Interpretation Code Description Data Bela rce(s) Supporting Document(s) SARS coronavirus 2 RNA [facility] This lab was ordered by [facility] and reported by [facility]. ID Date Data Source [id number] 09/19/2020 09:28:00 AM EDT [facility] Name Value Range Interpretation Code Description Data Bela rce(s) Supporting Document(s) SARS coronavirus 2 RNA [facility] This lab was ordered by [facility] and reported by [facility]. ID Date Data Source [facility] OBS FOLLOW UP OR REPEAT 09/19/2020 03:10:53 AM EDT eCW1 ([facility]) Name Value Range Interpretation Code Description Data Bela rce(s) Supporting Document(s) [facility] OBS FOLLOW UP OR REPEAT e CW1 ([facility]) ID Date Data Source [id number] 09/12/2020 12:00:00 PM EDT [facility] Name Value Range Interpretation Code Description Data Bela rce(s) Supporting Document(s) SARS coronavirus 2 RNA [facility] This lab was ordered by [facility] and reported by [facility]. ID Date Data Source HBSAG 09/07/2020 10:45:53 AM EDT eCW1 ([facility]) Name Value Range Interpretation Code Description Data Bela rce(s) Supporting Document(s) NEGATIVE eCW1 ([facility]) ID Date Data Source Glucose Challenge Test 1 Hour 09/07/2020 10:45:37 AM EDT eCW 1 ([facility]) Name Value Range Interpretation Code Description Data Bela rce(s) Supporting Document(s) 123 eCW1 ([facility]) ID Date Data Source URINE CULTURE 09/07/2020 10:45:22 AM EDT eCW1 ([facility]) Name Value Range Interpretation Code Description Data Bela rce(s) Supporting Document(s) eCW1 ([facility]) ID Date Data Source RUBELLA IMMUNE STATUS IgG 09/07/2020 10:45:11 AM EDT eCW1 ([facility]) Name Value Range Interpretation Code Description Data Bela rce(s) Supporting Document(s) IMMUNE eCW1 ([facility]) ID Date Data Source SYPHILIS ANTIBODY (RPR SCREEN) 09/07/2020 10:45:02 AM EDT eC W1 ([facility]) Name Value Range Interpretation Code Description Data Bela rce(s) Supporting Document(s) NONREACTIVE eCW1 ([facility]) ID Date Data Source [id number] 09/07/2020 10:44:54 AM EDT eCW1 ([facility]) Name Value Range Interpretation Code Description Data Bela rce(s) Supporting Document(s) eCW1 ([facility]) ID Date Data Source HEPATITIS C ANTIBODY INDEX 09/07/2020 10:44:43 AM EDT eCW1 ( [facility]) Name Value Range Interpretation Code Description Data Bela rce(s) Supporting Document(s) 0.2 eCW1 ([facility]) ID Date Data Source CHLAMYDIA & GC DNA AMPLIFICAT 09/07/2020 10:44:35 AM EDT eCW 1 ([facility]) Name Value Range Interpretation Code Description Data Bela rce(s) Supporting Document(s) Chlamydia trachomatis rRNA [Presence] in Unspecified specimen by Probe and target amplification method NEGATIVE eCW1 ([facility]) ID Date Data Source [id number] 09/05/2020 06:00:00 AM EDT [facility] Name Value Range Interpretation Code Description Data Bela rce(s) Supporting Document(s) SARS coronavirus 2 RNA [facility] This lab was ordered by [facility] and reported by [facility]. ID Date Data Source [id number] 08/29/2020 07:00:00 AM EDT [facility] Name Value Range Interpretation Code Description Data Bela rce(s) Supporting Document(s) SARS coronavirus 2 RNA [facility] This lab was ordered by [facility] and reported by [facility]. ID Date Data Source [id number] 08/22/2020 06:45:00 AM EDT [facility] Name Value Range Interpretation Code Description Data Bela rce(s) Supporting Document(s) SARS coronavirus 2 RNA [facility] This lab was ordered by [facility] and reported by [facility]. ID Date Data Source [id number] 08/15/2020 08:00:00 AM EDT [facility] Name Value Range Interpretation Code Description Data Bela rce(s) Supporting Document(s) SARS coronavirus 2 RNA [facility] This lab was ordered by [facility] and reported by [facility]. ID Date Data Source [id number] 08/08/2020 07:50:00 AM EDT [facility] Name Value Range Interpretation Code Description Data Bela rce(s) Supporting Document(s) SARS coronavirus 2 RNA [facility] This lab was ordered by [facility] and reported by [facility]. ID Date Data Source [id number] 08/01/2020 09:18:00 AM EDT [facility] Name Value Range Interpretation Code Description Data Bela rce(s) Supporting Document(s) SARS coronavirus 2 RNA [facility] This lab was ordered by [facility] and reported by [facility]. ID Date Data Source [id number] 07/25/2020 09:35:00 AM EDT [facility] Name Value Range Interpretation Code Description Data Bela rce(s) Supporting Document(s) SARS coronavirus 2 RNA [facility] This lab was ordered by [facility] and reported by [facility]. ID Date Data Source [id number] 06/20/2020 10:00:00 AM EDT [facility] Name Value Range Interpretation Code Description Data Ebla rce(s) Supporting Document(s) SARS coronavirus 2 RNA [facility] This lab was ordered by [facility] and reported by [facility]. ID Date Data Source [id number] 06/13/2020 06:00:00 AM EDT [facility] Name Value Range Interpretation Code Description Data Bela rce(s) Supporting Document(s) SARS coronavirus 2 RNA [facility] This lab was ordered by [facility] and reported by [facility]. ID Date Data Source [id number] 06/06/2020 08:40:00 AM EDT [facility] Name Value Range Interpretation Code Description Data Bela rce(s) Supporting Document(s) SARS coronavirus 2 RNA [facility] This lab was ordered by [facility] and reported by [facility]. ID Date Data Source [id number] 05/30/2020 05:30:00 AM EDT [facility] Name Value Range Interpretation Code Description Data Bela rce(s) Supporting Document(s) SARS CORONAVIRUS 2 RNA [facility] This lab was ordered by [facility] and reported by [facility]. ID Date Data Source [id number] 05/23/2020 05:30:00 AM EDT [facility] Name Value Range Interpretation Code Description Data Bela rce(s) Supporting Document(s) SARS CORONAVIRUS 2 RNA [facility] This lab was ordered by [facility] and reported by [facility]. ID Date Data Source [id number] 05/16/2020 11:49:00 AM EDT [facility] Name Value Range Interpretation Code Description Data Bela rce(s) Supporting Document(s) SARS CORONAVIRUS 2 RNA [facility] This lab was ordered by [facility] and reported by [facility]. ID Date Data Source [id number] 05/09/2020 05:30:00 AM EDT [facility] Name Value Range Interpretation Code Description Data Bela rce(s) Supporting Document(s) SARS CORONAVIRUS 2 RNA [facility] This lab was ordered by [facility] and reported by [facility]. ID Date Data Source [id number] 05/05/2020 10:00:00 AM EDT [facility] Name Value Range Interpretation Code Description Data Bela rce(s) Supporting Document(s) SARS CORONAVIRUS 2 RNA [facility] This lab was ordered by [facility] and reported by [facility]. ID Date Data Source [id number] 05/02/2020 05:30:00 AM EDT [facility] Name Value Range Interpretation Code Description Data Bela rce(s) Supporting Document(s) SARS CORONAVIRUS 2 RNA [facility] This lab was ordered by [facility] and reported by [facility]. ID Date Data Source [id number] 04/28/2020 06:00:00 AM EDT [facility] Name Value Range Interpretation Code Description Data Bela rce(s) Supporting Document(s) SARS CORONAVIRUS 2 RNA [facility] This lab was ordered by [facility] and reported by [facility]. ID Date Data Source [id number] 04/26/2020 06:00:00 AM EDT [facility] Name Value Range Interpretation Code Description Data Bela rce(s) Supporting Document(s) SARS CORONAVIRUS 2 RNA [facility] This lab was ordered by [facility] and reported by [facility]. ID Date Data Source [id number] 04/20/2020 06:00:00 AM EDT [facility] Name Value Range Interpretation Code Description Data Bela rce(s) Supporting Document(s) SARS CORONAVIRUS 2 RNA [facility] This lab was ordered by [facility] and reported by [facility]. ID Date Data Source [id number] 04/17/2020 05:30:00 AM EDT [facility] Name Value Range Interpretation Code Description Data Bela rce(s) Supporting Document(s) SARS CORONAVIRUS 2 RNA [facility] This lab was ordered by [facility] and reported by [facility]. Procedure Social History Code Duration Value Status Description Data Source(s ) Smoking 12/27/2020 12:00:00 AM EST Never Smoker completed Never S moker eCW1 ([facility]) Smoking 12/27/2020 12:00:00 AM EST Never Smoker completed Never S moker eCW1 ([facility]) Smoking 12/21/2020 12:00:00 AM EST Never Smoker completed Never S moker eCW1 ([facility]) Smoking 11/27/2020 12:00:00 AM EST Never Smoker completed Never S moker eCW1 ([facility]) Smoking 11/27/2020 12:00:00 AM EST Never Smoker completed Never S moker eCW1 ([facility]) Smoking 11/13/2020 12:00:00 AM EST Never Smoker completed Never S moker eCW1 ([facility]) Smoking 11/13/2020 12:00:00 AM EST Never Smoker completed Never S moker eCW1 ([facility]) Smoking 10/11/2020 12:00:00 AM EST Never Smoker completed Never S moker eCW1 ([facility]) Smoking 09/05/2020 12:00:00 AM EDT Never Smoker completed Never S moker eCW1 ([facility]) Smoking 09/05/2020 12:00:00 AM EDT Never Smoker completed Never S moker eCW1 ([facility]) Vital Signs ID Date Data Source UNK Name Value Range Interpretation Code Description Data Source(s) Diastolic blood pressure 82 mm[Hg] 82 mm[Hg] eCW1 ([facility]) Systolic blood pressure 124 mm[Hg] 124 mm[Hg] e CW1 ([facility]) Body mass index (BMI) [Ratio] 34.379 kg/m2 34.3 79 kg/m2 W1 ([facility]) Body height 66 [in_i] 66 [in_i] W1 ([facility]) Body weight 213 [lb_av] 213 [lb_av] W1 ([facility]) Diastolic blood pressure 82 mm[Hg] 82 mm[Hg] eCW1 ([facility]) Systolic blood pressure 118 mm[Hg] 118 mm[Hg] e CW1 ([facility]) Body mass index (BMI) [Ratio] 33.733 kg/m2 33.7 33 kg/m2 eCW1 ([facility]) Body height 66 [in_i] 66 [in_i] eCW1 ([facility]) Body weight 209 [lb_av] 209 [lb_av] eCW1 ([facility]) Diastolic blood pressure 84 mm[Hg] 84 mm[Hg] eCW1 ([facility]) Systolic blood pressure 124 mm[Hg] 124 mm[Hg] e CW1 ([facility]) Body mass index (BMI) [Ratio] 34.056 kg/m2 34.0 56 kg/m2 eCW1 ([facility]) Body height 66 [in_i] 66 [in_i] eCW1 ([facility]) Body weight 211 [lb_av] 211 [lb_av] eCW1 ([facility]) Diastolic blood pressure 78 mm[Hg] 78 mm[Hg] eCW1 ([facility]) Systolic blood pressure 118 mm[Hg] 118 mm[Hg] e CW1 ([facility]) Body mass index (BMI) [Ratio] 33.088 kg/m2 33.0 88 kg/m2 eCW1 ([facility]) Body height 66 [in_i] 66 [in_i] eCW1 ([facility] Body weight 205 [lb_av] 205 [lb_av] eCW1 ([facility]) Diastolic blood pressure 70 mm[Hg] 70 mm[Hg] eCW1 ([facility]) Systolic blood pressure 120 mm[Hg] 120 mm[Hg] e CW1 ([facility]) Body mass index (BMI) [Ratio] 33.023 kg/m2 33.0 23 kg/m2 eCW1 ([facility]) Body height 66 [in_i] 66 [in_i] eCW1 ([facility]) Body weight 92.8 kg 92.8 kg eCW1 ([facility]) Body weight 204.6 [lb_av] 204.6 [lb_av] eCW1 ([facility]) Diastolic blood pressure 70 mm[Hg] 70 mm[Hg] eCW1 ([facility]) Systolic blood pressure 112 mm[Hg] 112 mm[Hg] e CW1 ([facility]) Body mass index (BMI) [Ratio] 32.184 kg/m2 32.1 84 kg/m2 eCW1 ([facility]) Body height 66 [in_i] 66 [in_i] eCW1 ([facility]) Body weight 90.45 kg 90.45 kg eCW1 ([facility]) Body weight 199.4 [lb_av] 199.4 [lb_av] eCW1 ([facility], [facility]) Diastolic blood pressure 70 mm[Hg] 70 mm[Hg] eCW1 ([facility]) Systolic blood pressure 122 mm[Hg] 122 mm[Hg] e CW1 ([facility]) Body mass index (BMI) [Ratio] 32.184 kg/m2 32.1 84 kg/m2 W1 ([facility]) Body height 66 [in_i] 66 [in_i] eCW1 ([facility]) Body weight 199.4 [lb_av] 199.4 [lb_av] eCW1 ([facility], [facility]) Diastolic blood pressure 80 mm[Hg] 80 mm[Hg] eCW1 ([facility]) Systolic blood pressure 134 mm[Hg] 134 mm[Hg] e CW1 ([facility]) Body mass index (BMI) [Ratio] 33.411 kg/m2 33.4 11 kg/m2 eCW1 ([facility]) Body height 66 [in_i] 66 [in_i] eCW1 ([facility]) Body weight 207 [lb_av] 207 [lb_av] eCW1 ([facility]) Diastolic blood pressure 80 mm[Hg] 80 mm[Hg] eCW1 ([facility]) Systolic blood pressure 126 mm[Hg] 126 mm[Hg] e CW1 ([facility]) Body mass index (BMI) [Ratio] 35.57 kg/m2 35.57 kg/m2 [facility] ([facility]) Body height 66 [in_us] 66 [in_us] [facility] (Critical access hospital) Body weight Measured 220.4 [lb_av] 220.4 [lb_av ] [facility] ([facility])
[2021-01-13] MEDS ORDERED: LR 1,000 ML IV SCH (13:31)
[2021-01-13] MEDS ORDERED: LACTATED RINGER'S 1000 ML IV STA (13:31)
[2021-01-13 13:54] LABS: HEMOGLOBIN 11.2 g/dl (12.0-15.5); MEAN CORPUSCULAR HEMOGLOBIN 28.5 pg (27.0-33.0); MEAN CORPUSCULAR VOLUME 89.1 fl (80.0-96.0); PLATELET COUNT, AUTOMATED 167 10^3/uL (150-450); RED BLOOD COUNT 3.93 10^6/uL (4.00-5.40); WHITE BLOOD COUNT 9.7 10^3/uL (4.0-10.0)
--- NOTE | 2021-01-13 14:00 | HPEPDOC ---
Obstetrical History & Physical General Date of Admission Jan 13, 2021 at 12:45 History of Present Illness 25-year-old at 40+0 weeks gestation. Presents for an induction of labor. Indication for induction: elective, non-medically indicated. She denies vaginal bleeding, loss of fluid or painful, frequent uterine contractions. She reports regular movement. She denies headache, visual changes, right upper quadrant pain, shortness of breath or chest pain. course: 1. anemia; PNV + FeSO4 2. GBS positive 3. Cervical polyp; noted on yesterday's pelvic exam. 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 Physical Examination Physical Examination GENERAL: Alert and oriented times three. BREAST: . ABDOMEN: Gravid and non-tender to touch. FETUS: Is vertex (VTX) by sterile vaginal examination (SVE), fetus is vertex (VTX) by Kartik. HEART RATE: Regular rate and rhythm. LUNGS: Clear to auscultation (CTA). EXTREMITIES: No edema. No clonus. SVE: 1-2/75%/-3; could not palpate/appreciate polyp on exam. EFM: Cat I [place]: ctxs are irregular Vital Signs/I&O Vital Signs Date Time Temp Pulse Resp B/P (MAP) Pulse Ox O2 Delivery O2 Flow Rate FiO2 01/13/21 13:00 139 120/70 (87) Laboratory Data 24H LABS Laboratory Tests 2 01/13/21 12:56: Serology Scanned Report Hepatitis B Testing Assessment/Plan Assessment 25-year old at 40+0 weeks gestation. Dx: Full term gestation, elective IOL. Reassuring maternal and status. Plan Admit and orient. Routine labs/orders Group B Streptococcus (GBS) negative. GBS prophylaxis with Clindamycin Start with cervical ripening; Misoprostol 50mcg SL q4h until cervix is favorable. Counseled on Pitocin and induction of labor (IOL). Mode of delivery plan: ; as indicated. RAMAKRISHNA ORDONEZ DO Jan 13, 2021 14:00
[2021-01-13] MEDS ORDERED: PRENTAB9 PO (14:20)
[2021-01-13] MEDS ORDERED: FERR325T3 PO (14:20)
[2021-01-13] MEDS: miSOPROStol 50MCG 1/2 TABLET SL SCH ×2 (14:33→18:28)
[2021-01-13] MEDS: CLINDAMYCIN 900 MG in IV 1 EA IV SCH ×2 (14:34→22:43)
[2021-01-13] MEDS ORDERED: FENTANYL 2MCG/ML ROPIVACAINE 0.2% IN 0.9% NACL 100ML IVBAG As Ordered ONE (22:24)
[2021-01-13] MEDS ORDERED: ePHEDrine SULFATE 25 MG/5 ML(5MG/ML) SYRINGE As Ordered ONE (23:44)
[2021-01-13] MEDS ORDERED: diphenhydrAMINE 50MG/ML VIAL (J1200) IV PRN (23:45)
[2021-01-13] MEDS ORDERED: LACTATED RINGER'S 1000 ML IV PRN (23:45)
[2021-01-13] MEDS ORDERED: ONDANSETRON 4MG/2ML VIAL IV PRN (23:45)
[2021-01-13] MEDS ORDERED: ePHEDrine SULFATE 25 MG/5 ML(5MG/ML) SYRINGE IV PRN (23:45)
[2021-01-13] MEDS ORDERED: NALOXONE INJ 0.4MG/1ML VIAL (J2310 PER 1MG) IV PRN (23:45)
[2021-01-13] MEDS ORDERED: REFRIGERATOR IV KEYS XX PRN (23:45)
[2021-01-13] MEDS ORDERED: EPIDURAL COMMENT XX SCH (23:45)
[2021-01-13] MEDS ORDERED: FENTANYL/ROPIVACAINE/NACL BAG 100 ML EPIDURAL SCH (23:45)
[2021-01-13] MEDS ORDERED: EPIDURAL/PCA KEYS XX PRN (23:45)
[2021-01-14] VITALS (21 sets, daily range): BP systolic 99–136; BP diastolic 56–75
[2021-01-14] MEDS ORDERED: OXYTOCIN 30 UNITS IN 0.9% NaCl 500ML IV BAG (J2590) As Ordered ONE (00:09)
--- NOTE | 2021-01-14 00:27 | IPNPDOC ---
Obstetrical Progress Note Date of Service Jan 14, 2021 Subjective Patient is comfortable with epidural. No LOF. Small amount of bloody show. Objective Vital Signs Date Time Temp Pulse Resp B/P (MAP) Pulse Ox O2 Delivery O2 Flow Rate FiO2 01/13/21 22:55 106 20 139/76 (97) 01/13/21 21:43 98.9 Assessment Heart Rate Tracing: Category I Tocometer Frequency: every 3-7 min. Sterile Vaginal Examination Dilation: 5 cm Effacement (%): 70% Station: -2 Cervical Consistency: Soft Cervical Position: Anterior Postion/Presentation: Cephalic presentation Assessment and Plan Status: Reassuring Group B Streptococcus: Positive Anticipate: Vaginal Delivery Additional Comments Normal labor progression. Early active labor. Good pain relief with epidural. Start Pitocin. DO JOSÉ LUIS López JONATHAN R. DO Jan 14, 2021 00:27
[2021-01-14] MEDS ORDERED: OXYTOCIN DRIP 30 UNITS in IV 1 EA IV SCH ×2 (00:30→04:37)
--- NOTE | 2021-01-14 03:57 | IPNPDOC ---
Obstetrical Progress Note Date of Service Jan 14, 2021 Subjective Patient feeling rectovaginal pressure. No LOF. Objective Vital Signs Date Time Temp Pulse Resp B/P (MAP) Pulse Ox O2 Delivery O2 Flow Rate FiO2 01/14/21 03:12 72 20 116/60 (78) 01/13/21 23:21 98.3 Assessment Heart Rate Tracing: Category I Tocometer Contractions: Yes Frequency: every 2-5 min. Sterile Vaginal Examination Dilation: complete Effacement (%): 100% Station: +1 (AROM, thick meconium) Cervical Consistency: Soft Cervical Position: Anterior Postion/Presentation: Cephalic presentation Assessment and Plan Status: Reassuring Group B Streptococcus: Positive Anticipate: Vaginal Delivery Additional Comments Reassuring maternal status. Thick meconium; peds notified. Second stage of labor; start maternal pushing efforts. RAMAKRISHNA ORDONEZ DO Jan 14, 2021 03:57
[2021-01-14] MEDS ORDERED: LR 1,000 ML IV SCH (04:37)
--- NOTE | 2021-01-14 04:37 | DNPDOC ---
[facility] Delivery Note Delivery Note DATE OF DELIVERY: 01/14/21 TIME OF DELIVERY: 0408 Spontaneous vaginal delivery. 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 Kobi Serrano DO FACOG ANESTHESIA: epidural LACERATION: 2nd degree ESTIMATED BLOOD LOSS: 350 mL. FINDINGS: 7 pound 11 ounce (3480g) male infant (name: Roel), Score 8 and 9. DELIVERY SUMMARY: The active phase and second stage of labor progressed in normal fashion.. She received Pitocin augmentation throughout her labor course. She was fully treated for GBS with Clindamycin secondary to her PCN allergy. The head delivered in the LILLIE position, and restituted LOT. No nuchal cord was noted. The anterior shoulder delivered with gentle downward guidance and the remainder of the body delivered with ease. The baby was placed on the patient's chest. Delayed cord clamping occurred for approximately 1 minute. The cord was then doubly clamped and cut. IV Pitocin was bolused to actively manage the third stage of labor. The placenta delivered intact without any difficulty within 10 minutes of delivery. The uterine fundus was noted to be firm and 2 cm below the umbilicus. The cervix, vagina, vulva and perineum were inspected. A second-degree laceration was noted and immediately repaired with 3-0 Vicryl in typical fashion. Excellent hemostasis was noted. Sponge, needle and instrument counts were correct per protocol. DO REGAN Dow JONATHAN R. DO Jan 14, 2021 04:37
[2021-01-14] MEDS ORDERED: IBUPROFEN 600MG TAB PO PRN (04:45)
[2021-01-14] MEDS ORDERED: DOCUSATE SODIUM 100MG CAPSULE PO PRN (04:45)
[2021-01-14] MEDS ORDERED: MEASLES,MUMPS,RUBELLA VACCINE INJ (MMR-II) (90707) SC SCH (04:45)
[2021-01-14] MEDS ORDERED: ACETAMINOPHEN 500 MG TAB PO PRN (04:45)
[2021-01-14] MEDS ORDERED: IBUPROFEN 800 MG TAB PO PRN (04:45)
[2021-01-14] MEDS ORDERED: BENZOCAINE 20% HEMORRHOIDAL OINTMENT 28GM TUBE TOP PRN (04:45)
[2021-01-14] MEDS ORDERED: ACETAMINOPHEN TAB 650MG DOSE (2X325MG) PO PRN (04:45)
[2021-01-14] MEDS ORDERED: RHOGAM 300 MCG (1500 IU) INJ (J2790) IM SCH (04:45)
[2021-01-14] MEDS: PRENATAL VITAMINS CHEWABLE TABLET PO SCH (07:52)
[2021-01-15 06:00] VITALS: BP 118/72
--- NOTE | 2021-01-15 07:43 | IPNPDOC ---
Progress Note Date of Service: Jan 15, 2021 Progress Note SUBJECT: Status post . She has been ambulating, voiding spontaneously without issue and tolerating regular diet. Lochia decreasing/minimal. Pain is well-controlled. Denies headache, visual changes, right upper quadrant pain, shortness breath or chest pain. OBJECTIVE: VITAL SIGNS: Within normal limits, afebrile. Alert and oriented times three. Abdomen: Fundus firm at U-2. Soft, NTTP. ASSESSMENT: Status post uncomplicated spontaneous vaginal delivery. Vitals within normal limits, afebrile, hemodynamically stable with no evidence of infection. PLAN: Discharge to home later today (or tomorrow AM if baby not dc by PEDS) Tylenol and Motrin for pain. Routine instructions/precautions reviewed. Routine PP visit in 6 weeks in clinic. VS, I&O, 24H, Fishbone Vital Signs/I&O Vital Signs Date Time Temp Pulse Resp B/P (MAP) Pulse Ox O2 Delivery O2 Flow Rate FiO2 01/15/21 06:00 97.9 78 16 118/72 (87) 98 Room Air I&O- Last 24 Hours up to 6 AM 01/15/21 05:59 Intake Total 480 ml Output Total 850 ml Balance -370 ml RAMAKRISHNA ORDONEZ DO Jan 15, 2021 07:43
[2021-01-15] MEDS: PRENATAL VITAMINS CHEWABLE TABLET PO SCH (08:17)
== END 2021-01-15 18:55 | disposition home or self-care (01) | DRG 560 ==
LOC: M LDI 12:45 → M OBS 01-14 06:30
PROVIDERS: ADMIT Obstetrics & Gynecology; ATTEND Obstetrics & Gynecology
PROC: 3E0P7GC Introduction of Other Therapeutic Substance into Female Reproductive, Via Natural or Artificial Opening (ICD-10-PCS; 2021-01-13)
PROC: 10E0XZZ Delivery of Products of Conception, External Approach (ICD-10-PCS; principal; 2021-01-14)
PROC: 0KQM0ZZ Repair Perineum Muscle, Open Approach (ICD-10-PCS; 2021-01-14)
PROC: 10907ZC Drainage of Amniotic Fluid, Therapeutic from Products of Conception, Via Natural or Artificial Opening (ICD-10-PCS; 2021-01-14)
DX: O99.02 Anemia complicating childbirth (principal); D64.9 Anemia, unspecified; O99.824 Streptococcus B carrier state complicating childbirth; O77.0 Labor and delivery complicated by meconium in amniotic fluid; O70.1 Second degree perineal laceration during delivery; Z37.0 Single live birth; Z3A.40 40 weeks gestation of pregnancy

== ENCOUNTER → 2022-08-27 | Outpatient (REF) | payer BC | LOC: M SFHCWAGY 10:17 | PROVIDERS: ATTEND Advanced Practice Midwife | DX: Z34.93 Encounter for supervision of normal pregnancy, unspecified, third trimester (principal) ==

== ENCOUNTER → 2022-12-18 | Outpatient (REF) | payer BC ==
[~2022-12-18] MED LIST changes: +ACET-683 PO; +COLA100C5 PO; +IBUP-1022 PO
== END ==
LOC: M SFHCWAGY 12:50
PROVIDERS: ATTEND Specialist
DX: Z01.419 Encounter for gynecological examination (general) (routine) without abnormal findings (principal)

== ENCOUNTER → 2023-02-17 | Outpatient (REF) | payer BC | LOC: M PLALAB 15:04 | PROVIDERS: ATTEND Advanced Practice Midwife | DX: Z53.9 Procedure and treatment not carried out, unspecified reason (principal) ==

== ENCOUNTER → 2023-02-17 | Outpatient (CLI) | payer BC ==
[2023-02-17 19:29] LABS: HEMATOCRIT 37.3 % (36.0-47.0); HEMOGLOBIN 11.7 g/dl (12.0-15.5); MEAN CORPUSCULAR HEMOGLOBIN 26.9 pg (27.0-33.0); MEAN CORPUSCULAR HGB CONC 31.4 g/dl (32.0-36.5); MEAN CORPUSCULAR VOLUME 85.7 fl (80.0-96.0); PLATELET COUNT, AUTOMATED 297 10^3/uL (150-450); RED BLOOD COUNT 4.35 10^6/uL (4.00-5.40); WHITE BLOOD COUNT 10.1 10^3/uL (4.0-10.0)
[2023-02-17 20:32] LABS: HIV 1&2 SCREEN CENTAUR NEGATIVE (NEGATIVE)
[2023-02-17 20:41] LABS: HEPATITIS C VIRUS ABY INDEX 0.1 INDEX (<0.8)
== END ==
LOC: M PLALAB 15:12
PROVIDERS: ATTEND Advanced Practice Midwife
DX: Z34.91 Encounter for supervision of normal pregnancy, unspecified, first trimester (principal); Z3A.00 Weeks of gestation of pregnancy not specified

== ENCOUNTER → 2023-03-17 | Outpatient (REF) | payer BC ==
[2023-03-17 22:30] LABS: GC DNA AMPLIFICATION NEGATIVE (NEGATIVE)
== END ==
LOC: M PLALAB 15:02
PROVIDERS: ATTEND Advanced Practice Midwife
DX: Z34.91 Encounter for supervision of normal pregnancy, unspecified, first trimester (principal)

== ENCOUNTER → 2023-04-21 | Outpatient (CLI) | payer BC | LOC: M WHC 14:31 | PROVIDERS: ATTEND Obstetrics & Gynecology | DX: Z34.92 Encounter for supervision of normal pregnancy, unspecified, second trimester (principal); Z3A.20 20 weeks gestation of pregnancy ==

== ENCOUNTER → 2023-05-27 | Outpatient (CLI) | payer BC | LOC: M WHC 10:13 | PROVIDERS: ATTEND Obstetrics & Gynecology | DX: Z36.2 Encounter for other antenatal screening follow-up (principal); Z3A.26 26 weeks gestation of pregnancy ==

== ENCOUNTER → 2023-06-12 | Outpatient (CLI) | payer BC ==
[2023-06-12 10:01] LABS: HEMATOCRIT 33.1 % (36.0-47.0); HEMOGLOBIN 10.7 g/dl (12.0-15.5); MEAN CORPUSCULAR HEMOGLOBIN 29.6 pg (27.0-33.0); MEAN CORPUSCULAR HGB CONC 32.3 g/dl (32.0-36.5); MEAN CORPUSCULAR VOLUME 91.7 fl (80.0-96.0); PLATELET COUNT, AUTOMATED 186 10^3/uL (150-450); RED BLOOD COUNT 3.61 10^6/uL (4.00-5.40)
[2023-06-12 12:59] LABS: GC DNA AMPLIFICATION NEGATIVE (NEGATIVE)
== END ==
LOC: M LAB 07:34
PROVIDERS: ATTEND Obstetrics & Gynecology
DX: Z34.92 Encounter for supervision of normal pregnancy, unspecified, second trimester (principal)

== ENCOUNTER → 2023-08-06 | Outpatient (REF) | payer BC | LOC: M PLALAB 08:48 | PROVIDERS: ATTEND Advanced Practice Midwife | DX: Z34.80 Encounter for supervision of other normal pregnancy, unspecified trimester (principal) ==

== ENCOUNTER 2023-08-30 09:14 | Inpatient (IN) | payer BC ==
[~2023-08-30] VITALS: Ht 167.6 cm; Wt 105.7 kg
[2023-08-30] VITALS (14 sets, daily range): BP systolic 121–139; BP diastolic 72–90
[2023-08-30] MEDS ORDERED: BENA25CA4 PO (09:36)
[2023-08-30] MEDS ORDERED: HOME MED LIST COMPLETE! XX SCH (09:40)
[2023-08-30 10:39] LABS: HEMATOCRIT 34.8 % (36.0-47.0); HEMOGLOBIN 11.7 g/dl (12.0-15.5); MEAN CORPUSCULAR HEMOGLOBIN 30.8 pg (27.0-33.0); MEAN CORPUSCULAR HGB CONC 33.6 g/dl (32.0-36.5); MEAN CORPUSCULAR VOLUME 91.6 fl (80.0-96.0); PLATELET COUNT, AUTOMATED 153 10^3/uL (150-450); WHITE BLOOD COUNT 9.8 10^3/uL (4.0-10.0)
[2023-08-30] MEDS ORDERED: OXYTOCIN DRIP 30 UNITS in IV 1 EA IV PRN (11:50)
[2023-08-30] MEDS ORDERED: METHYLERGONOVINE MALEATE 0.2MG/ML 1ML VIAL IM PRN (11:50)
[2023-08-30] MEDS ORDERED: TRANEXAMIC ACID INJection 1,000 MG in NS 100 ML IV PRN (11:50)
[2023-08-30] MEDS ORDERED: LIDOCAINE 1% MDV 20ML VIAL INFIL PRN (11:50)
[2023-08-30] MEDS: miSOPROStol 50MCG 1/2 TABLET PO SCH ×2 (12:02→16:01)
[2023-08-30] MEDS: diphenhydrAMINE 25MG CAP PO SCH ×3 (13:00→22:33)
[2023-08-30] MEDS ORDERED: OXYTOCIN DRIP 30 UNITS in IV 1 EA IV SCH (21:20)
[2023-08-30] MEDS ORDERED: LR 1,000 ML IV SCH (21:20)
[2023-08-30] MEDS ORDERED: ePHEDrine SULFATE 25 MG/5 ML(5MG/ML) SYRINGE IVP PRN (23:05)
[2023-08-30] MEDS ORDERED: ONDANSETRON 4MG 2ML VIAL IV PRN (23:05)
[2023-08-30] MEDS ORDERED: EPIDURAL/PCA KEYS XX PRN (23:05)
[2023-08-30] MEDS ORDERED: FENTANYL/ROPIVACAINE/NACL BAG 100 ML EPIDURAL SCH (23:05)
[2023-08-30] MEDS ORDERED: LR 500 ML IV PRN (23:05)
[2023-08-30] MEDS ORDERED: NALOXONE INJ 0.4MG/1ML VIAL IV PRN (23:05)
[2023-08-30] MEDS ORDERED: diphenhydrAMINE 50MG/ML VIAL IV PRN (23:05)
[2023-08-31] VITALS (24 sets, daily range): BP systolic 106–153; BP diastolic 55–82; O2SAT 95–98
[2023-08-31] MEDS: diphenhydrAMINE 25MG CAP PO SCH ×6 (02:51→20:30)
[2023-08-31] MEDS ORDERED: METHYLERGONOVINE MALEATE 0.2MG/ML 1ML VIAL IM PRN (04:15)
[2023-08-31] MEDS ORDERED: OXYTOCIN DRIP 30 UNITS in IV 1 EA IV SCH (04:15)
[2023-08-31] MEDS ORDERED: IBUPROFEN 600MG TAB PO PRN (04:15)
[2023-08-31] MEDS ORDERED: ANUSOL HC CREAM 30GM TOP PRN (04:15)
[2023-08-31] MEDS ORDERED: ACETAMINOPHEN 500 MG TAB PO PRN (04:15)
[2023-08-31] MEDS ORDERED: ACETAMINOPHEN TAB 650MG DOSE (2X325MG) PO PRN (04:15)
[2023-08-31] MEDS ORDERED: DOCUSATE SODIUM 100MG CAPSULE PO PRN (04:15)
[2023-08-31] MEDS ORDERED: METHYLERGONOVINE MALEATE 0.2 MG TAB PO PRN (04:15)
[2023-08-31] MEDS ORDERED: RHOGAM 300MCG (1500IU) INJ IM SCH (04:15)
[2023-08-31] MEDS ORDERED: MOM 30ML SUSPENSION UDC PO PRN (04:15)
[2023-08-31] MEDS ORDERED: DIBUCAINE 1% OINTMENT 30GM TOP PRN (04:15)
[2023-08-31] MEDS: IBUPROFEN 800 MG TAB PO PRN ×2 (07:56→17:01)
[2023-08-31] MEDS: PRENATAL VITAMINS CHEWABLE TABLET PO SCH (10:21)
[2023-09-01] MEDS: diphenhydrAMINE 25MG CAP PO SCH ×4 (01:07→13:00)
[2023-09-01 06:00] VITALS: BP 135/83; O2SAT 98
[2023-09-01] MEDS: PRENATAL VITAMINS CHEWABLE TABLET PO SCH (08:21)
[2023-09-01] MEDS ORDERED: ACET-683 PO (13:08)
[2023-09-01] MEDS ORDERED: IBUP80TA PO (13:08)
[2023-09-02] MEDS ORDERED: MEASLES,MUMPS,RUBELLA VACCINE INJ (MMR-II) SC.IMMUN ONE (09:00)
== END 2023-09-01 17:10 | disposition home or self-care (01) | DRG 560 ==
LOC: M LDI 09:14 → EEVIPCON 09:14 → M OBS 08-31 10:45
PROVIDERS: ADMIT Obstetrics & Gynecology; ATTEND Obstetrics & Gynecology
PROC: 3E033VJ Introduction of Other Hormone into Peripheral Vein, Percutaneous Approach (ICD-10-PCS; 2023-08-30)
PROC: 10E0XZZ Delivery of Products of Conception, External Approach (ICD-10-PCS; principal; 2023-08-31)
PROC: 0KQM0ZZ Repair Perineum Muscle, Open Approach (ICD-10-PCS; 2023-08-31)
DX: O70.1 Second degree perineal laceration during delivery (principal); Z3A.39 39 weeks gestation of pregnancy; Z37.0 Single live birth; Z88.0 Allergy status to penicillin

== ENCOUNTER → 2023-11-03 | Outpatient (REF) ==
[~2023-11-03] MED LIST changes: +BENA25CA4 PO; +IBUP80TA PO
[2023-11-03 15:05] LABS: RSV AMPLIFICATION NEGATIVE (NEGATIVE)
== END ==
LOC: M EMP 13:47
PROVIDERS: ATTEND Family Medicine
DX: Z11.52 Encounter for screening for COVID-19 (principal)

== ENCOUNTER → 2024-01-28 | Outpatient (REF) | payer BC ==
[2024-01-28 14:57] LABS: Trichomonas vaginalis (AMP) NOT DETECTED (NEGATIVE)
[2024-01-28 15:20] LABS: GC DNA AMPLIFICATION NEGATIVE (NEGATIVE)
== END ==
LOC: M SFHCWAGY 13:02
PROVIDERS: ATTEND Nurse Practitioner Family
DX: Z11.3 Encounter for screening for infections with a predominantly sexual mode of transmission (principal)

== ENCOUNTER → 2024-03-11 | Outpatient (REF) | payer BC | LOC: M LAB REF 21:23 | PROVIDERS: ATTEND Physician Assistant | DX: B34.9 Viral infection, unspecified (principal) ==

== ENCOUNTER → 2024-07-01 | Outpatient (REF) | LOC: M EMP 09:00 | PROVIDERS: ATTEND Family Medicine | DX: Z11.52 Encounter for screening for COVID-19 (principal) ==

== ENCOUNTER → 2024-10-08 | Outpatient (CLI) | payer BC ==
[2024-10-08 08:20] LABS: BASO % 0.3 % (0.0-1.0); EOS # 0.2 10^3/uL (0.0-0.5); EOS % 2.5 % (0.0-3.0); HEMATOCRIT 33.7 % (36.0-47.0); HEMOGLOBIN 10.9 g/dl (12.0-15.5); LYMPH # 1.8 10^3/uL (1.5-5.0); LYMPH % 26.7 % (24.0-44.0); MEAN CORPUSCULAR HGB CONC 32.3 g/dl (32.0-36.5); MEAN CORPUSCULAR VOLUME 83.4 fl (80.0-96.0); MONO # 0.5 10^3/uL (0.0-0.8); NEUTROPHILS # 4.2 10^3/uL (1.5-8.5); NEUTROPHILS % 62.2 % (36.0-66.0); PLATELET COUNT, AUTOMATED 261 10^3/uL (150-450); RED BLOOD COUNT 4.04 10^6/uL (4.00-5.40); WHITE BLOOD COUNT 6.8 10^3/uL (4.0-10.0)
[2024-10-08 08:57] LABS: THYROID STIMULATING HORMONE 2.757 uIU/ML (0.55-4.78)
[2024-10-08 08:58] LABS: ALBUMIN 3.5 G/DL (3.2-5.2); ALKALINE PHOSPHATASE 114 U/L (35-104); ALT/SGPT < 9 U/L (7.0-40); AST/SGOT 9 U/L (<34); BILIRUBIN,TOTAL 0.6 MG/DL (0.3-1.2); BLOOD UREA NITROGEN 11 MG/DL (9-23); CALCIUM LEVEL 8.8 MG/DL (8.5-10.1); CARBON DIOXIDE LEVEL 26 MMOL/L (20-31); CHLORIDE LEVEL 110 MMOL/L (98-107); CHOLESTEROL LEVEL 182 MG/DL (<200); CHOLESTEROL RISK RATIO 3.87 (<5); CREATININE FOR GFR 0.76 MG/DL (0.55-1.30); FREE T4 0.94 NG/DL (0.89-1.76); GLOMERULAR FILTRATION RATE > 60.0 (>60); GLUCOSE, FASTING 90 MG/DL (60-100); IRON (FE) 50 UG/DL (50-170); PERCENT SATURATION 13.5 % (13.2-45.0); POTASSIUM SERUM 4.2 MMOL/L (3.5-5.1); SODIUM LEVEL 142 MMOL/L (136-145); TOTAL IRON BINDING CAPACITY 370 UG/DL (250-425); TOTAL PROTEIN 6.8 G/DL (5.7-8.2); TRIGLYCERIDES LEVEL 90 MG/DL (<150)
[2024-10-08 08:59] LABS: VITAMIN B12 LEVEL 497 PG/ML (211-911)
[2024-10-08 09:10] LABS: HEMOGLOBIN A1c 5.5 % (4.0-6.0)
[2024-10-12 03:17] LABS: HEMATOCRIT 33.7 % (36.0-47.0)
== END ==
LOC: M LAB 07:23
PROVIDERS: ATTEND Student in an Organized Health Care Education/Training Program
DX: Z76.89 Persons encountering health services in other specified circumstances (principal); Z13.31 Encounter for screening for depression; Z13.1 Encounter for screening for diabetes mellitus; Z13.220 Encounter for screening for lipoid disorders; Z13.21 Encounter for screening for nutritional disorder; Z13.29 Encounter for screening for other suspected endocrine disorder; Z86.2 Personal history of diseases of the blood and blood-forming organs and certain disorders involving the immune mechanism

== ENCOUNTER → 2024-10-21 | Outpatient (REF) | LOC: M EMP 08:05 | PROVIDERS: ATTEND Family Medicine | DX: Z11.52 Encounter for screening for COVID-19 (principal) ==

== ENCOUNTER → 2025-04-06 | Outpatient (REF) | LOC: M EMP 10:18 | PROVIDERS: ATTEND Family Medicine | DX: Z11.52 Encounter for screening for COVID-19 (principal) ==